=== PATIENT | female | born 1985 | race African-American/Black ===

== ENCOUNTER 2019-01-12 08:09 | Emergency (ER) | payer OTHER, MEDICAID ==
[~2019-01-12] VITALS: Ht 165.1 cm; Wt 146.1 kg
[2019-01-12 08:17] VITALS: Ht 165.1 cm; Wt 146.1 kg
[2019-01-12 09:37] LABS: CALCIUM 11.8 mg/dL (8.5-10.1); CARBON DIOXIDE 25.9 mmol/L (21-32); CHLORIDE SERUM 104 mmol/L (98-107); CREATININE SERUM 0.8 mg/dL (0.6-1.0); GFR1 > 60 mL/min; GLUCOSE SERUM 102 mg/dL (74-106); PLATELET COUNT 359 x10^3mcL (130-400); POTASSIUM SERUM 3.6 mmol/L (3.5-5.1); RED CELL DISTRIBUTION WIDTH 14.4 % (11.5-14.5); SODIUM SERUM 138 mmol/L (136-145)
[2019-01-12 09:49] LABS: UA SPECIFIC GRAVITY 1.015 (1.005-1.035); microscopic required? YES; urine erythrocyte 2+ (NEGATIVE)
[2019-01-12 09:55] LABS: ALBUMIN 3.7 g/dL (3.4-5.0); ALKALINE PHOSPHATASE 124 U/L (46-116); ALT/SGPT 24 U/L (14-59); AST/SGOT 18 U/L (15-37)
[2019-01-12 10:03] LABS: TOTAL PROTEIN, SERUM 8.9 g/dL (6.4-8.2)
[2019-01-12 10:43] LABS: BAND NEUTROPHIL 1 % (0-10); BASOPHIL 0 % (0-2); MONOCYTE 6 % (0-7); SEGMENTED NEUTROPHILS 75 % (37-75)
[2019-01-12 10:44] LABS: rbc morphology (normal/abnorm) NORMAL (NORMAL)
[2019-01-12 13:59] VITALS: BP 139/99
== END 2019-01-12 13:59 | disposition home or self-care (01) ==
LOC: ED 08:09
PROVIDERS: Emergency Medicine
DX: R06.02 Shortness of breath (principal); R09.81 Nasal congestion; R05 Cough; F31.9 Bipolar disorder, unspecified; Z98.890 Other specified postprocedural states
CPT/HCPCS: 36415; 85378; J7620

== ENCOUNTER 2019-05-16 13:27 | Inpatient (IN) | payer OTHER ==
[~2019-05-16] VITALS: Ht 165.1 cm; Wt 146.5 kg
[2019-05-16 13:41] VITALS: Ht 165.1 cm; Wt 146.5 kg
[2019-05-16 14:47] LABS: UA SPECIFIC GRAVITY <=1.005 (1.005-1.035); microscopic required? YES; urine erythrocyte 3+ (NEGATIVE)
[2019-05-16 14:48] LABS: CALCIUM 9.1 mg/dL (8.5-10.1); CARBON DIOXIDE 26.6 mmol/L (21-32); CHLORIDE SERUM 103 mmol/L (98-107); CREATININE SERUM 0.8 mg/dL (0.6-1.0); GFR1 > 60 mL/min; GLUCOSE SERUM 99 mg/dL (74-106); POTASSIUM SERUM 3.3 mmol/L (3.5-5.1); SODIUM SERUM 137 mmol/L (136-145)
[2019-05-16 14:49] LABS: PLATELET COUNT 327 x10^3mcL (130-400)
[2019-05-16 14:58] LABS: ALKALINE PHOSPHATASE 141 U/L (46-116); ALT/SGPT 17 U/L (14-59); AST/SGOT 17 U/L (15-37); BILIRUBIN TOTAL 0.6 mg/dL (0.20-1.00); TOTAL PROTEIN, SERUM 8.1 g/dL (6.4-8.2)
[2019-05-16 15:01] LABS: ALBUMIN 2.8 g/dL (3.4-5.0); RED CELL DISTRIBUTION WIDTH 15.7 % (11.5-14.5)
[2019-05-16 15:15] LABS: T3 TOTAL 0.87 ng/mL
[2019-05-16 15:18] LABS: C REACTIVE PROTEIN 30.9 mg/dL (<=0.9); CK-MB < 0.5 ng/mL (0-3.6); CREATINE KINASE 30 U/L (26-192)
[2019-05-16 15:34] LABS: BAND NEUTROPHIL 2 % (0-10); BASOPHIL 0 % (0-2); MONOCYTE 9 % (0-7); SEGMENTED NEUTROPHILS 86 % (37-75)
[2019-05-16 15:35] LABS: PLATELET MORPHOLOGY PLATELETS NORMAL; rbc morphology (normal/abnorm) NORMAL (NORMAL)
[2019-05-16 15:50] LABS: FREE T4 1.59 ng/dL (0.76-1.46); FREE THYROXINE INDEX 3.6 ug/dL (1.4-4.5); T4(THYROXINE) 9.6 ug/dL (4.7-13.3)
[2019-05-16 16:13] LABS: ERYTHROCYTE SED RATE 77 mm/hr (0-20)
[2019-05-16] MEDS ORDERED: TRAMADOL HCL50 MG PO (19:31)
[2019-05-16 20:19] LABS: CHOLESTEROL/HDL RATIO 1.8; MAGNESIUM 2.3 mg/dL (1.8-2.4)
[2019-05-16 20:23] LABS: AMPHETAMINE QUAL UR NONE DETECTED (See below)
[2019-05-16 21:13] VITALS: BP 136/55
[2019-05-17 05:46] VITALS: BP 122/69
[2019-05-17 06:46] LABS: PLATELET COUNT 327 x10^3mcL (130-400)
[2019-05-17 06:56] LABS: BASOPHIL % 0 % (0-2)
[2019-05-17 06:57] LABS: CALCIUM 8.8 mg/dL (8.5-10.1); CHLORIDE SERUM 104 mmol/L (98-107); GFR1 > 60 mL/min; GLUCOSE SERUM 87 mg/dL (74-106); POTASSIUM SERUM 3.5 mmol/L (3.5-5.1); SODIUM SERUM 141 mmol/L (136-145)
[2019-05-17 08:02] VITALS: BP 128/85
[2019-05-17 11:43] VITALS: BP 125/69
[2019-05-17 16:41] VITALS: BP 138/86
[2019-05-17 20:39] VITALS: BP 124/71
[2019-05-18 05:42] VITALS: BP 105/71
[2019-05-18 06:59] LABS: BASOPHIL % 0.2 % (0-2); PLATELET COUNT 329 x10^3mcL (130-400)
[2019-05-18 07:22] LABS: CALCIUM 8.8 mg/dL (8.5-10.1); CARBON DIOXIDE 29.8 mmol/L (21-32); CHLORIDE SERUM 105 mmol/L (98-107); CREATININE SERUM 0.8 mg/dL (0.6-1.0); GFR1 > 60 mL/min; GLUCOSE SERUM 89 mg/dL (74-106); MAGNESIUM 2.3 mg/dL (1.8-2.4); POTASSIUM SERUM 3.2 mmol/L (3.5-5.1); SODIUM SERUM 142 mmol/L (136-145)
[2019-05-18 07:31] LABS: RED CELL DISTRIBUTION WIDTH 15.7 % (11.5-14.5)
[2019-05-18 08:21] VITALS: BP 135/85
[2019-05-18 14:34] VITALS: BP 135/85
[2019-05-18] MEDS ORDERED: CIPRO500 MG PO (15:04)
[2019-05-18] MEDS ORDERED: FLA500 PO (15:05)
== END 2019-05-18 15:30 | disposition home or self-care (01) | DRG 445 ==
LOC: ED 13:27 → MU 19:48
PROVIDERS: Specialist; ADMIT General Practice
DX: K80.20 Calculus of gallbladder without cholecystitis without obstruction (principal); Z68.43 Body mass index [BMI] 50.0-59.9, adult; E44.0 Moderate protein-calorie malnutrition; K52.9 Noninfective gastroenteritis and colitis, unspecified; F31.9 Bipolar disorder, unspecified; F12.10 Cannabis abuse, uncomplicated; F14.10 Cocaine abuse, uncomplicated; E66.01 Morbid (severe) obesity due to excess calories; F17.210 Nicotine dependence, cigarettes, uncomplicated; Z85.71 Personal history of Hodgkin lymphoma
CPT/HCPCS: 36600; 84439; 87046; 87046-59; C9113; G0378; J0744; J1885; J2405; J2543; J3490; J7030

== ENCOUNTER 2019-07-10 18:31 | Emergency (ER) | payer OTHER ==
[~2019-07-10] VITALS: Ht 165.1 cm; Wt 146.1 kg
[~2019-07-10 18:31] MED LIST: CIPRO500 MG PO; FLA500 PO; TRAMADOL HCL50 MG PO
[2019-07-10 19:20] VITALS: Ht 165.1 cm; Wt 146.1 kg
[2019-07-10 22:00] VITALS: BP 131/85
== END 2019-07-10 22:00 | disposition home or self-care (01) ==
LOC: ED 18:31
DX: K02.9 Dental caries, unspecified (principal); F31.9 Bipolar disorder, unspecified; C81.90 Hodgkin lymphoma, unspecified, unspecified site
CPT/HCPCS: J1885; J2920